=== PATIENT | female | born 1940 | race African-American/Black ===

== ENCOUNTER 2020-11-27 07:48 | Inpatient (IN) | payer MEDICARE, OTHER ==
[~2020-11-27] VITALS: Ht 160 cm; Wt 57.6 kg
--- NOTE | 2020-11-27 08:16 | NUR ---
[id number] FRM [place], BODY SPASMS AND WEAKNESS X 1 WEEK. PT AAOX4, RR EVEN & UNLABORED. DENIES CP, SOB, DIZZINESS, N/V/D AT THIS TIME. PT SEEN & EVAL'D BY DR. GRAY. PLACED ON MEDICAL CHEMIST, ST. WILL CONT TO MONITOR. PT TO CT VIA SHONDA.
[2020-11-27 08:20] LABS: BASOPHILS # (AUTO) 0.1 /CMM (0.0-0.2); BASOPHILS % (AUTO) 0.7 % (0.0-2.0); EOSINOPHILS % (AUTO) 0.4 % (0.0-6.0); HEMATOCRIT 42 % (33-45); HEMOGLOBIN 13.8 g/dL (11.5-14.8); LYMPHOCYTES # (AUTO) 1.7 /CMM (0.8-4.8); LYMPHOCYTES % (AUTO) 18.5 % (20.0-44.0); MEAN CORPUSCULAR HGB CONC 33 g/dl (31.0-36.0); MEAN CORPUSCULAR VOLUME 97 fL (82-100); MONOCYTES # (AUTO) 0.9 /CMM (0.1-1.30); MONOCYTES % (AUTO) 9.7 % (2.0-12.0); NEUTROPHILS # (AUTO) 6.3 /CMM (1.8-8.9); NEUTROPHILS % (AUTO) 70.7 % (43.0-81.0); PLATELET COUNT (AUTO) 312 /CMM (150-450); RED BLOOD CELL COUNT(AUTO) 4.33 MIL/uL (4.0-5.2); WHITE BLOOD COUNT (AUTO) 8.9 K/uL (4.3-11.0)
[2020-11-27 08:29] LABS: CALCIUM, SERUM 9.7 mg/dL (8.5-10.1); CREATININE 1.1 mg/dL (0.6-1.3)
[2020-11-27] MEDS ORDERED: DIAZEPAM 5 MG TABLET PO ONE (08:30)
[2020-11-27] MEDS ORDERED: IV NS 0.9% 1,000 ML BAG IV ONE (08:30)
[2020-11-27] MEDS ORDERED: DIAZEPAM 5 MG TABLET ONE (08:33)
[2020-11-27 08:36] LABS: ALBUMIN 4.2 g/dL (3.4-5.0); BILIRUBIN,DIRECT 0.1 mg/dL (0.0-0.2); BILIRUBIN,TOTAL 0.5 mg/dL (0.2-1.0); TOTAL PROTEIN, SERUM 7.7 g/dL (6.4-8.2)
[2020-11-27] MEDS ORDERED: LOSA100T31 PO (08:38)
[2020-11-27] MEDS ORDERED: CARB1TAB21 PO (08:38)
[2020-11-27] MEDS ORDERED: AMLO-212 PO (08:38)
[2020-11-27] MEDS ORDERED: BACL10TA PO (08:38)
[2020-11-27] MEDS ORDERED: TIZA4TAB5 PO (08:38)
[2020-11-27] MEDS ORDERED: CLON1TAB12 PO (08:38)
[2020-11-27] MEDS ORDERED: VENL75CA62 PO (08:38)
[2020-11-27] MEDS ORDERED: TRIM100T PO (08:38)
[2020-11-27 08:43] LABS: THYROID STIMULATING HORMONE 0.634 uIU/mL (0.358-3.74)
[2020-11-27] MEDS ORDERED: ACET-2605 PO (08:53)
[2020-11-27 09:27] LABS: BILIRUBIN,URINE Negative (NEGATIVE); COLOR,URINE YELLOW (YELLOW); LEUKOCYTE ESTERASE ,URINE Small (NEGATIVE); NITRITE, URINE Negative (NEGATIVE); PH,URINE 5.5 (5.0-8.0); PROTEIN,URINE Trace mg/dl (NEGATIVE); UGLUCOSE Negative (NEGATIVE)
[2020-11-27] MEDS ORDERED: ONDANSETRON HCL/PF 4 MG/2 ML VIAL ONE (09:43)
[2020-11-27] MEDS ORDERED: MORPHINE SULFATE INJ 4 MG/ML DISP.SYRIN ONE (09:44)
[2020-11-27 09:45] LABS: BACTERIA,URINE Many /HPF (None Seen); SQUAMOUS EPITHELIAL CELL,UR Moderate /HPF (None Seen)
--- NOTE | 2020-11-27 09:47 | NUR ---
MEDICATED FOR PAIN PER ERMD ORDER, PT SOBIA WELL. WILL CONT TO MONITOR.
--- NOTE | 2020-11-27 09:53 | NUR ---
PATIENT REFUSED CT ABD/PEL.
[2020-11-27] MEDS ORDERED: ONDANSETRON HCL/PF - ER 4 MG/2 ML VIAL IV ONE (10:00)
[2020-11-27] MEDS ORDERED: MORPHINE SULFATE INJ 2 MG/ML DISP.SYRIN IV ONE (10:00)
[2020-11-27] MEDS ORDERED: HYDR-3972 PO (10:24)
[2020-11-27] MEDS ORDERED: LEVOFLOXACIN 500 MG /D5W 100ML 100 ML IV ONE (10:28)
[2020-11-27] MEDS ORDERED: LEVOFLOXACIN 500 MG /D5W 100ML 500 MG/100 ML PIGGYBACK IV ONE (10:30)
--- NOTE | 2020-11-27 10:38 | NUR ---
CALLED NURSING SUP FOR M/S BED.
--- NOTE | 2020-11-27 10:52 | NUR ---
ROOM 108
--- NOTE | 2020-11-27 11:11 | NUR ---
REPORT GIVEN TO ERVIN MATTHEWS FOR LORI.
[2020-11-27] MEDS: ENOXAPARIN SODIUM 40 MG/0.4 ML DISP.SYRIN SQ SCH ×2 (11:30→12:59)
[2020-11-27] MEDS ORDERED: TRIMETHOPRIM 100 MG XX SCH (11:30)
[2020-11-27] MEDS ORDERED: Z GUARD REMEDY 2 OZ OINT TP PRN (11:30)
[2020-11-27] MEDS ORDERED: MAGNESIUM HYDROXIDE 30 ML UDC PO PRN (11:30)
[2020-11-27] MEDS ORDERED: HYDROCODONE/APAP 5/325MG TABLET PO PRN (11:30)
[2020-11-27] MEDS ORDERED: MAG HYDROX/AL HYDROX/SIMETH 30 ML UDC PO PRN (11:30)
[2020-11-27] MEDS ORDERED: ONDANSETRON HCL/PF 4 MG/2 ML VIAL IVP PRN (11:30)
[2020-11-27] MEDS ORDERED: ACETAMINOPHEN 325 MG TABLET PO PRN (11:30)
[2020-11-27] MEDS ORDERED: MORPHINE SULFATE INJ 4 MG/ML DISP.SYRIN IV PRN (12:00)
--- NOTE | 2020-11-27 12:01 | NUR ---
COVID NEGATIVE PER LAB
--- NOTE | 2020-11-27 12:30 | NUR ---
RN NOTES RECEIVED PT FROM ER VIA [facility]. PT AWAKE, A/O X4. STABLE ON ROOM AIR, O2 SATURATION @99%. NO SOB OR ANY ACUTE RESPIRATORY DISTRESS NOTED. COMPLAINS OF MUSCLE SPASM AND SHAKING. BACLOFEN GIVEN ORDERED. VS WNL. SKIN IS INTACT. SAFETY MEASURES IN PLACE. CALL LIGHT WITHIN REACH. REFUSED TO CHANGE INTO HOSPITAL GOWN. BED LOCKED AND AT LOWEST POSITION WITH SIDE RAILS UP X3. WILL CONTINUE TO MONITOR.
[2020-11-27 12:45] VITALS: BP 157/94
[2020-11-27] MEDS: VENLAFAXINE XR 75 MG CAP.SR.24H PO SCH (12:58)
[2020-11-27] MEDS: AMLODIPINE BESYLATE 5 MG TABLET PO SCH (12:58)
[2020-11-27] MEDS: BACLOFEN (10 MG) 10 MG TABLET PO SCH ×2 (12:58→16:56)
[2020-11-27] MEDS: LOSARTAN POTASSIUM 50 MG TABLET PO SCH (13:01)
[2020-11-27 16:00] VITALS: BP 139/68
[2020-11-27] MEDS ORDERED: TIZANIDINE HCL 4 MG TABLET PO SCH (17:00)
--- NOTE | 2020-11-27 18:47 | NUR ---
RN CLOSING NOTES NO SIGNIFICANT CHANGE THROUGHOUT THE SHIFT. NO SOB OR ANY RESPIRATORY DISTRESS. IN STABLE CONDITION. NO PAIN REPORTED AT THIS TIME. SKIN IS INTACT. SAFETY MEASURES STILL IN PLACE. WILL ENDORSE TO NIGHT RN FOR LORI.
--- NOTE | 2020-11-27 19:30 | NUR ---
RN NOTE RECEIVED PT IN BED, ALERT AND ORIENTED X4. NO RESP DISTRESS NOTED. DENIES ANY SOB. COMPLAINS OF GENERALIZED MUSCLE SPASM. IV ON RAC PATENT AND INTACT, FLUSHED. FLOEY CATH IN PLACE, DRAINING JANUSZ COLOR URINE. ALL SAFETY MEASURES IMPLEMENTED PER PROTOCOL, CALL LIGHT WITHIN REACH, BED LOCKED IN LOWEST POSITION. SIDE RAILS UP X 2.
[2020-11-27 20:00] VITALS: BP 127/82
[2020-11-27] MEDS: IV NS 0.9% 1,000 ML IV PRN (20:17)
[2020-11-27] MEDS: HYDROMORPHONE 1 MG/1 ML DISP.SYRIN IV PRN (20:27)
[2020-11-27] MEDS: ZOLPIDEM TARTRATE 5 MG TABLET PO PRN (22:28)
--- NOTE | 2020-11-27 22:28 | NUR ---
RN NOTE PT REQUESTED FOR SLEEPING PILL, MERAIEN GIVEN ORDERED.
[2020-11-28] MEDS: HYDROMORPHONE 1 MG/1 ML DISP.SYRIN IV PRN ×2 (01:51→20:26)
--- NOTE | 2020-11-28 01:51 | NUR ---
RN NOTE PT COMPLAINING OF GENERALIZED PAIN/MUSCLE SPASMS 03/16. DILAUDID IV GIVEN ORDERED.
[2020-11-28 04:00] VITALS: BP 92/57
--- NOTE | 2020-11-28 06:34 | NUR ---
RN NOTE PT SLEEPING, AROUSES EASILY. NO S/SX OF DISTRESS NOTED, TOLERATING ROOM AIR WITH O2 SAT OF 98%. CONTINUE ON IVF NS AT 75ML/HR. NO SIGNS OF INFILTRATION NOTED. PT ABLE TO MAKE NEEDS KNOWN. ZUÑIGA INDWELLING WELL. ALL SAFETY MEASURES MAINTAINED. CALL LIGHT WITHIN REACH AT ALL TIMES.
--- NOTE | 2020-11-28 07:54 | NUR ---
RN Opening note Received patient in bed AO x 4, able to responds all stimuli. Skin is warm to touch, keep clean/dry, intact IV site. Respiratory even and unlabored on room air. Kept elevated HOB for endure airway and aspiration precaution, also lowest bed position for safety. Call light within reach, will continue to monitor.
[2020-11-28] MEDS: PANTOPRAZOLE 40 MG TABLET.DR PO SCH (08:03)
[2020-11-28 08:12] LABS: BASOPHILS # (AUTO) 0.1 /CMM (0.0-0.2); EOSINOPHILS % (AUTO) 0.7 % (0.0-6.0); HEMATOCRIT 38 % (33-45); HEMOGLOBIN 12.5 g/dL (11.5-14.8); LYMPHOCYTES # (AUTO) 1.4 /CMM (0.8-4.8); LYMPHOCYTES % (AUTO) 15.4 % (20.0-44.0); MEAN CORPUSCULAR HGB CONC 33 g/dl (31.0-36.0); MEAN CORPUSCULAR VOLUME 98 fL (82-100); MONOCYTES # (AUTO) 0.9 /CMM (0.1-1.30); MONOCYTES % (AUTO) 9.8 % (2.0-12.0); NEUTROPHILS # (AUTO) 6.8 /CMM (1.8-8.9); NEUTROPHILS % (AUTO) 73.1 % (43.0-81.0); PLATELET COUNT (AUTO) 280 /CMM (150-450); RED BLOOD CELL COUNT(AUTO) 3.91 MIL/uL (4.0-5.2); WHITE BLOOD COUNT (AUTO) 9.3 K/uL (4.3-11.0)
[2020-11-28] MEDS: ENOXAPARIN SODIUM 40 MG/0.4 ML DISP.SYRIN SQ SCH (08:18)
[2020-11-28] MEDS: AMLODIPINE BESYLATE 5 MG TABLET PO SCH (08:19)
[2020-11-28] MEDS: PREGABALIN 25 MG CAPSULE PO SCH ×2 (08:19→16:57)
[2020-11-28] MEDS: LEVOFLOXACIN (250MG) 250 MG TABLET PO SCH (08:19)
[2020-11-28] MEDS: VENLAFAXINE XR 75 MG CAP.SR.24H PO SCH (08:19)
[2020-11-28] MEDS: LOSARTAN POTASSIUM 50 MG TABLET PO SCH (08:19)
[2020-11-28] MEDS: BACLOFEN (10 MG) 10 MG TABLET PO SCH ×3 (08:19→16:57)
[2020-11-28 08:27] LABS: CALCIUM, SERUM 9.1 mg/dL (8.5-10.1); CREATININE 0.8 mg/dL (0.6-1.3); MAGNESIUM 2.1 mg/dL (1.8-2.4); PHOSPHORUS 2.5 mg/dL (2.5-4.9)
[2020-11-28 08:34] LABS: THYROID STIMULATING HORMONE 0.583 uIU/mL (0.358-3.74)
[2020-11-28] MEDS: IV NS 0.9% 1,000 ML IV PRN (10:25)
--- NOTE | 2020-11-28 12:38 | NUR ---
Son/Berhane called and, asked wants talk to MD. Left message with Son phone number.
--- NOTE | 2020-11-28 18:37 | NUR ---
RN CLOSE NOTE PATIENT IN BED, AO X 4, CONFUSED OCCASIONALLY, DENIES PAIN OR DISCOMFORT. SKIN IS WARM TO TOUCH, KEEP CLEAN/DRY, INTACT IV SITE ON RIGHT AC G20, NO ADVERSE REACTION OBSERVED FROM IV ATB. ENCOURAGE ORAL FLUID IN TAKE TOLERATED. KEPT ELEVATED HOB FOR ENSURE AIRWAY AND ASPIRATION PRECAUTION AND LOWEST BED POSITION FOR SAFETY. CALL LIGHT WITHIN REACH, WILL CONTINUE TO MONITOR.
[2020-11-28 20:00] VITALS: BP 146/84
[2020-11-28] MEDS: ZOLPIDEM TARTRATE 5 MG TABLET PO PRN (22:59)
[2020-11-29] MEDS: IV NS 0.9% 1,000 ML IV PRN ×2 (01:08→22:11)
[2020-11-29 04:00] VITALS: BP 136/88
--- NOTE | 2020-11-29 05:50 | NUR ---
RN NOTE PT TRANSFERRED TO 3 W, REPORT GIVEN TO 3W NURSE FOR LORI.
--- NOTE | 2020-11-29 07:16 | NUR ---
RN NOTE RECEIVED PT IN BED A/A/O X3, PT IS ON RA SATING 94% TO 95%. HAS UNLABORED BREATHING , SAFETY MEASURES IN PLACE.
--- NOTE | 2020-11-29 07:20 | NUR ---
RN NOTE REPORT GIVEN TO INCOMING SHIFT FOR LORI.
[2020-11-29 07:25] LABS: BASOPHILS % (AUTO) 0.6 % (0.0-2.0); EOSINOPHILS % (AUTO) 1.1 % (0.0-6.0); HEMATOCRIT 38 % (33-45); HEMOGLOBIN 12.4 g/dL (11.5-14.8); LYMPHOCYTES # (AUTO) 1.2 /CMM (0.8-4.8); LYMPHOCYTES % (AUTO) 13.5 % (20.0-44.0); MEAN CORPUSCULAR HGB CONC 33 g/dl (31.0-36.0); MEAN CORPUSCULAR VOLUME 98 fL (82-100); MONOCYTES # (AUTO) 0.9 /CMM (0.1-1.30); MONOCYTES % (AUTO) 9.7 % (2.0-12.0); NEUTROPHILS # (AUTO) 6.6 /CMM (1.8-8.9); NEUTROPHILS % (AUTO) 75.1 % (43.0-81.0); PLATELET COUNT (AUTO) 267 /CMM (150-450); RED BLOOD CELL COUNT(AUTO) 3.87 MIL/uL (4.0-5.2); WHITE BLOOD COUNT (AUTO) 8.8 K/uL (4.3-11.0)
[2020-11-29] MEDS: PANTOPRAZOLE 40 MG TABLET.DR PO SCH (07:32)
--- NOTE | 2020-11-29 07:41 | NUR ---
RN OPENING NOTE PATIENT IS CURRENTLY IN BED WITH HOB AT SEMI FOWLERS POSITION. PATIENT IS AOX4. CURRENTLY ON ROOM AIR WITH NO SIGNS OF LABORED BREATHING. ZUÑIGA CATHETER IS IN PLACE. SKIN IS INTACT. RWRIST#20 IS PATENT AND INTACT. BED IS LOCKED IN THE LOWEST POSITION, 3 GUARD RAILS RAISED, CALL RODRIGUEZ WITHIN REACH, AND ALL HOSPITAL SAFETY PRECAUTIONS ARE BEING FOLLOWED. WILL CONTINUE TO MONITOR THROUGHOUT SHIFT.
[2020-11-29 07:51] LABS: CALCIUM, SERUM 9.3 mg/dL (8.5-10.1); CREATININE 0.9 mg/dL (0.6-1.3)
[2020-11-29 08:00] VITALS: BP 170/96
[2020-11-29] MEDS: PREGABALIN 25 MG CAPSULE PO SCH ×2 (08:05→16:04)
[2020-11-29 08:06] LABS: C-REACTIVE PROTEIN, QUANT 2 mg/L (0-10)
[2020-11-29] MEDS: LEVOFLOXACIN (250MG) 250 MG TABLET PO SCH (08:06)
[2020-11-29] MEDS: BACLOFEN (10 MG) 10 MG TABLET PO SCH ×3 (08:06→16:04)
[2020-11-29] MEDS: VENLAFAXINE XR 75 MG CAP.SR.24H PO SCH (08:06)
[2020-11-29] MEDS: AMLODIPINE BESYLATE 5 MG TABLET PO SCH (08:08)
[2020-11-29] MEDS: LOSARTAN POTASSIUM 50 MG TABLET PO SCH (08:08)
[2020-11-29] MEDS: ENOXAPARIN SODIUM 40 MG/0.4 ML DISP.SYRIN SQ SCH ×2 (08:09→08:24)
[2020-11-29 16:00] VITALS: BP 142/65
--- NOTE | 2020-11-29 18:36 | NUR ---
RN CLOSING NOTE PATIENT IS CURRENTLY IN BED WITH HOB AT SEMI FOWLERS POSITION. PATIENT IS AOX4. CURRENTLY ON ROOM AIR WITH NO SIGNS OF LABORED BREATHING. ZUÑIGA CATHETER IS IN PLACE. SKIN IS INTACT. RWRIST#20 IS PATENT AND INTACT. BED IS LOCKED IN THE LOWEST POSITION, 3 GUARD RAILS RAISED, CALL RODRIGUEZ WITHIN REACH, AND ALL HOSPITAL SAFETY PRECAUTIONS ARE BEING FOLLOWED. ALL DUE MEDS GIVEN AND PATIENT REMAINED STABLE THROUGHOUT SHIFT. WILL ENDORSE TO GUM ROLLING MACHINE OPERATOR RN FOR LORI.
[2020-11-29 20:00] VITALS: BP 145/81
--- NOTE | 2020-11-29 20:00 | NUR ---
RN NOTE RECEIVED PT IN BED A/A/O X3, PT IS ON RA SATING 95%. HAS UNLABORED BREATHING , SAFETY MEASURES IN PLACE.
[2020-11-29] MEDS: ZOLPIDEM TARTRATE 5 MG TABLET PO PRN (21:58)
[2020-11-30] MEDS: HYDROMORPHONE 1 MG/1 ML DISP.SYRIN IV PRN (03:48)
[2020-11-30 04:00] VITALS: BP 144/85
[2020-11-30] MEDS: IV NS 0.9% 1,000 ML IV PRN (06:36)
--- NOTE | 2020-11-30 07:30 | NUR ---
MS RN OPENING NOTES RESIDENT ALERT AND ORIENTED X 3 BUT FORGETFUL, ON BED WITH NO SIGNS OF RESPIRATORY DISTRESS. PATIETN WITH PERIPHERAL IV ACCESS ON THE RIGHT FORE ARM G20 WITH NORMAL SALINE RINNIGN AT 75ML/HR. IV ACCESS COVRED WITH TEGADERM WITH NO SIGNS OF INFLAMMATION, ATENT AND INTACT. WITH ZUÑIGA CATHETER TO URINE BAG WITH LIGHT YELLOW URINE. ON MODERATE TO HIGH BACK REST. COMFORT MEASURES PROVIDED. ENCOURAGED TO DO DEEP BREATHING EXERCISES. CALL LIGHT WITHIN REACH AT ALL TIMES. PROVIDED WITH CALM AND QUIET ENVIRONMENT. NOT IN DISTRESS.
[2020-11-30 08:00] VITALS: BP 153/94
[2020-11-30 08:05] VITALS: BP 153/94
[2020-11-30 08:15] VITALS: BP 153/94
[2020-11-30] MEDS: PANTOPRAZOLE 40 MG TABLET.DR PO SCH (08:40)
[2020-11-30] MEDS: LOSARTAN POTASSIUM 50 MG TABLET PO SCH (08:41)
[2020-11-30] MEDS: LEVOFLOXACIN (250MG) 250 MG TABLET PO SCH (08:41)
[2020-11-30] MEDS: VENLAFAXINE XR 75 MG CAP.SR.24H PO SCH (08:41)
[2020-11-30] MEDS: PREGABALIN 25 MG CAPSULE PO SCH ×2 (08:42→17:16)
[2020-11-30] MEDS: BACLOFEN (10 MG) 10 MG TABLET PO SCH ×3 (08:42→17:16)
[2020-11-30] MEDS: AMLODIPINE BESYLATE 5 MG TABLET PO SCH (08:42)
--- NOTE | 2020-11-30 08:55 | NUR ---
MS RN NOTE PT SEEN BY DR BRIONES, AWAITING ORDERS.
[2020-11-30] MEDS: ENOXAPARIN SODIUM 40 MG/0.4 ML DISP.SYRIN SQ SCH (09:00)
[2020-11-30] MEDS ORDERED: PREG75CA PO (09:14)
[2020-11-30 15:20] VITALS: BP 153/94
--- NOTE | 2020-11-30 17:45 | NUR ---
MS RN NOTE PATIENT DISCHARGED TO [facility]. REPORT GIVEN TO RACHELE. PATIENT ALERT AND ORIENTED X4 BUT FORGETFUL WITH NO SIGNS OF DISTRESS. DISCHARGE INSTRUCTIONS GIVEN TO THE PATIENT AND RN RACHELE VERBALIZED UNDERSTANDING. ALL BELONGINGS ACCOUNTED FOR. SKIN INTACT. IV ACCESS REMOVED WITH NO SIGNS OF BLEEDING OR SWELLING. ZUÑIGA CATHETER INTACT WITH YELLOW URINE DRAINING. PATIENT PICKED UP BY AMBULANCE PERSONNEL ON A GURNEY WITH NO SIGN OF DISTRESS.
[2020-12-01 08:06] LABS: *SPE A/G RATIO 1.2 (0.7-1.7); *SPE ALBUMIN 3.6 g/dL (2.9-4.4); *SPE ALPHA-1-GLOBULIN 0.2 g/dL (0.0-0.4); *SPE ALPHA-2-GLOBULIN 0.9 g/dL (0.4-1.0); *SPE GLOBULIN, TOTAL 2.9 g/dL (2.2-3.9); *SPE M-SPIKE Not Observed g/dL (Not Observed); *SPEGAMMA GLOBULIN 0.8 g/dL (0.4-1.8)
[2020-12-02 05:08] LABS: *ANA ANTI-CENTROMERE B AB <0.2 AI (0.0-0.9); *ANA ANTI-DNA(DS) AB, QN <1 IU/mL (0-9); *ANA ANTI-JO-1 <0.2 AI (0.0-0.9); *ANA ANTICHROMATIN ANTIBODY <0.2 AI (0.0-0.9); *ANA RNP ANTIBODIES 0.6 AI (0.0-0.9); *ANA SJOGREN'S ANTI-SS-A <0.2 AI (0.0-0.9); *ANA SJOGREN'S ANTI-SS-B <0.2 AI (0.0-0.9); *ANAANTI-SCLERODERMA-70 AB 0.7 AI (0.0-0.9); *ANASMITH AB <0.2 AI (0.0-0.9)
== END 2020-11-30 17:39 | DRG 690 ==
LOC: ER 07:52 → MEDSG1 10:55 → MED 11-30 05:36
PROVIDERS: ADMIT Nurse Practitioner Acute Care; ATTEND Nurse Practitioner Acute Care
DX: N39.0 Urinary tract infection, site not specified (principal); G20 Parkinson's disease; E86.0 Dehydration; F32.9 Major depressive disorder, single episode, unspecified; I10 Essential (primary) hypertension; G62.9 Polyneuropathy, unspecified; G24.9 Dystonia, unspecified; Z87.891 Personal history of nicotine dependence; Z20.822 Contact with and (suspected) exposure to COVID-19; Z88.0 Allergy status to penicillin; Z79.899 Other long term (current) drug therapy; R79.89 Other specified abnormal findings of blood chemistry; G72.49 Other inflammatory and immune myopathies, not elsewhere classified; B96.1 Klebsiella pneumoniae [K. pneumoniae] as the cause of diseases classified elsewhere
CPT/HCPCS: 36415; 70450-TC; 71045-TC; 71046; 80048-TC; 80061-TC; 80076-TC; 81001; 83690-TC; 83735-TC; 84100-TC; 84155; 84165; 84443-TC; 85025-TC; 85652-TC; 86140; 86225; 86235; 87081-TC; 87086-TC; 87186-TC; 93307-TC; 97112-TC; 97530-TC; G0378; J1170; J1650; J1956; J2270; J2405; J7030